=== PATIENT | male | born 1960 | race Caucasian/White ===

== ENCOUNTER → 2025-04-07 | Outpatient (CLI) | payer MEDICARE ==
[~2025-04-07] MED LIST: AMLO-65 PO; MAPA500T17 PO; SAW160CA3 PO
== END ==
LOC: M PLARAD 14:44
PROVIDERS: ATTEND Family Medicine
DX: R91.8 Other nonspecific abnormal finding of lung field (principal)
CPT/HCPCS: 78815; A9552

== ENCOUNTER → 2025-04-22 | Outpatient (CLI) | payer MEDICARE ==
[~2025-04-22] MED LIST changes: +AMLO25TA PO; +ATOR1TAB19 PO; +SAW160CA22 PO
== END ==
LOC: M PLAIMG 13:34
PROVIDERS: ATTEND Internal Medicine Critical Care Medicine
DX: R91.8 Other nonspecific abnormal finding of lung field (principal); I25.10 Atherosclerotic heart disease of native coronary artery without angina pectoris

== ENCOUNTER 2025-04-30 06:07 | Day surgery (SDC) | payer MEDICARE ==
[~2025-04-30] VITALS: Ht 167.6 cm; Wt 80.1 kg
[2025-04-30] MEDS ORDERED: LR 1,000 ML IV SCH ×2 (06:20→10:35)
[2025-04-30] MEDS ORDERED: SUGAMMADEX SODIUM 500 MG/5 ML VIAL As Ordered ONE (06:51)
[2025-04-30] MEDS ORDERED: LIDOCAINE 2% 100 MG/5 ML SDV (FOR ANES.) As Ordered ONE (06:51)
[2025-04-30] MEDS ORDERED: ROCURONIUM BROMIDE 50MG/5ML VIAL As Ordered ONE (06:51)
[2025-04-30] MEDS ORDERED: dexAMETHasone 4 MG/ML 1 ML VIAL As Ordered ONE (06:51)
[2025-04-30] MEDS ORDERED: ONDANSETRON 4MG/2ML VIAL As Ordered ONE (06:52)
[2025-04-30] MEDS ORDERED: MIDAZOLAM INJ 2 MG/2 ML VIAL As Ordered ONE (06:52)
[2025-04-30] MEDS: ALBUTEROL SULFATE 2.5 MG/0.5 ML INH CONCENTRATE NEB SOLN INH ONE (07:15)
[2025-04-30] MEDS: LIDOCAINE PRES-FREE 2% 10 ML AMP INH ONE (07:15)
[2025-04-30] MEDS: CETACAINE SPRAY 5 GM As Ordered ONE (07:42)
[2025-04-30] MEDS: THROMBIN 5,000 UNITS VIAL As Ordered ONE (07:42)
[2025-04-30] MEDS ORDERED: ACETAMINOPHEN 1000MG/100ML IV BAG As Ordered ONE (07:44)
[2025-04-30] MEDS: EPINEPHrine 1 MG/10 ML SYRINGE 1.5IN As Ordered ONE (08:30)
[2025-04-30] MEDS ORDERED: HYDROMORPHONE HCL 0.5 MG/0.5 ML SYRINGE IV PRN (10:35)
[2025-04-30] MEDS ORDERED: ONDANSETRON 4MG/2ML VIAL IV PRN (10:35)
[2025-04-30 11:07] VITALS: BP 123/70; TEMP 97.4; O2SAT 96
[2025-04-30] MEDS: LIDOCAINE 1% SDV 30 ML VIAL As Ordered ONE (11:34)
[2025-05-15] MEDS ORDERED: ALBU8.5H (13:06)
[2025-05-26] MEDS ORDERED: INLY5TAB PO (12:37)
== END 2025-04-30 11:33 | disposition home or self-care (01) ==
LOC: M SDC 06:07
PROVIDERS: ATTEND Internal Medicine Critical Care Medicine
DX: C77.1 Secondary and unspecified malignant neoplasm of intrathoracic lymph nodes (principal); R91.8 Other nonspecific abnormal finding of lung field; I10 Essential (primary) hypertension; E78.00 Pure hypercholesterolemia, unspecified; Z87.891 Personal history of nicotine dependence; K21.9 Gastro-esophageal reflux disease without esophagitis; Z79.899 Other long term (current) drug therapy; Z90.5 Acquired absence of kidney; Z80.1 Family history of malignant neoplasm of trachea, bronchus and lung; Z80.8 Family history of malignant neoplasm of other organs or systems
CPT/HCPCS: 31624; 31627; 31652; 31654; 71045; 76000; 87070; 87102; 87116; 87205; 87206; 88108; 88173; 88305; 88313; 93005; C1601; J0131; J0168; J1100; J2250; J2405; J3010

== ENCOUNTER → 2025-05-23 | Outpatient (CLI) | payer MEDICARE ==
[~2025-05-23] VITALS: Ht 167.6 cm; Wt 79.1 kg
[~2025-05-23] MED LIST changes: +ALBU8.5H; +INLY5TAB PO; +LIDOCAINE 1% MDV 20 ML VIAL SC SCH; +MIDAZOLAM INJ 2 MG/2 ML VIAL IV PRN; +NS (Normal Saline) 0.9% 1,000 ML IV SCH; +ceFAZolin SODIUM 2 GM in DEXTROSE 5% (D5W) ADV/MINI-BAG 50 ML IV ONE
[2025-05-23 07:15] VITALS: TEMP 98.2
[2025-05-23] MEDS: ceFAZolin SODIUM 2 GM in DEXTROSE 5% (D5W) ADV/MINI-BAG 50 ML IV ONE (07:20)
[2025-05-23] MEDS: MIDAZOLAM INJ 2 MG/2 ML VIAL IV PRN (08:30)
[2025-05-23] MEDS: LIDOCAINE 1% MDV 20 ML VIAL SC SCH (08:32)
[2025-05-23 09:00] VITALS: BP 124/66; O2SAT 99
== END ==
LOC: M IRPRO 07:06
PROVIDERS: ATTEND Specialist
DX: R91.8 Other nonspecific abnormal finding of lung field (principal)
CPT/HCPCS: 36561; 76937; 77001; 99152; J0688; J1642; J2250; J3010

== ENCOUNTER → 2025-06-04 | Outpatient (CLI) | payer MEDICARE ==
[~2025-06-04] MED LIST changes: -LIDOCAINE 1% MDV 20 ML VIAL SC SCH; -MIDAZOLAM INJ 2 MG/2 ML VIAL IV PRN; -NS (Normal Saline) 0.9% 1,000 ML IV SCH; -ceFAZolin SODIUM 2 GM in DEXTROSE 5% (D5W) ADV/MINI-BAG 50 ML IV ONE
[2025-06-04 13:34] VITALS: TEMP 98.2
[2025-06-04] MEDS: LIDOCAINE 1% MDV 20 ML VIAL SC ONE (13:35)
[2025-06-04 14:05] VITALS: BP 182/104; O2SAT 98
== END ==
LOC: M IRPRO 13:16
PROVIDERS: ATTEND Internal Medicine Critical Care Medicine
DX: C79.89 Secondary malignant neoplasm of other specified sites (principal)

== ENCOUNTER → 2025-06-09 | Outpatient (POV) | payer OTHER ==
[~2025-06-09] MED LIST changes: +LEVO1TAB39 PO; +MIRA3350 PO; +TRAM50TA2 PO
== END ==
LOC: M IRPOV 10:00
PROVIDERS: ATTEND Registered Nurse School
DX: Z45.2 Encounter for adjustment and management of vascular access device (principal); C64.2 Malignant neoplasm of left kidney, except renal pelvis; F17.220 Nicotine dependence, chewing tobacco, uncomplicated; Z82.49 Family history of ischemic heart disease and other diseases of the circulatory system; Z83.6 Family history of other diseases of the respiratory system; Z80.9 Family history of malignant neoplasm, unspecified